=== PATIENT | male | born 1945 | race Caucasian/White ===

== ENCOUNTER → 2017-06-11 | Outpatient (CLI) | payer OTHER ==
[~2017-06-11] MED LIST: ATOR20TA9 PO; METF10002 PO
== END | disposition home or self-care (01) ==
LOC: CFH 13:40
PROVIDERS: ATTEND Family Medicine
DX: K57.30 Diverticulosis of large intestine without perforation or abscess without bleeding (principal); K76.0 Fatty (change of) liver, not elsewhere classified; R93.41 Abnormal radiologic findings on diagnostic imaging of renal pelvis, ureter, or bladder
CPT/HCPCS: 74177; 82565

== ENCOUNTER 2017-07-31 05:16 | Day surgery (SDC) | payer OTHER ==
[2017-07-30 09:01] LABS: ASPARTATE AMINO TRANSFERASE 17 U/L (15-37); BLOOD UREA NITROGEN 14 mg/dL (7-18)
[~2017-07-31] VITALS: Ht 172.7 cm; Wt 84.1 kg
[~2017-07-31 05:16] MED LIST changes: +ASPI-621 PO; +CHOL10003 PO; +FISH OIL PO
[2017-07-31] MEDS ORDERED: LACTATED RINGERS 1,000 ML IV SCH (05:57)
[2017-07-31 05:58] VITALS: BP 136/86
[2017-07-31] MEDS ORDERED: STERILE WATER IV ONE (06:30)
[2017-07-31] MEDS ORDERED: MITOMYCIN IV ONE (06:30)
[2017-07-31] MEDS ORDERED: FENTANYL PF 100 MCG/2ML ONE ×2 (06:53→07:23)
[2017-07-31] MEDS ORDERED: MIDAZOLAM 1 MG/ML, 2ML ONE (06:53)
[2017-07-31] MEDS ORDERED: ONDANSETRON 2MG/ML, 2ML ONE (06:58)
[2017-07-31] MEDS ORDERED: PROPOFOL 10 MG/ML, 20ML ONE (06:58)
[2017-07-31] MEDS ORDERED: DEXAMETHASONE 4 MG/ML, 5ML ONE (06:58)
[2017-07-31] MEDS ORDERED: ONDANSETRON 2MG/ML, 2ML IVPush PRN (07:30)
[2017-07-31] MEDS ORDERED: HYDROmorphone 1 MG/ML, 1ML IV PRN (07:30)
[2017-07-31] MEDS ORDERED: PROMETHAZINE 25 MG/ML, 1ML IV PRN (07:30)
[2017-07-31] MEDS ORDERED: OXYcodone 5 MG/5 ML ORAL.SOL UDC PO PRN (07:30)
[2017-07-31] MEDS ORDERED: FENTANYL PF 100 MCG/2ML IV PRN (07:30)
[2017-07-31] MEDS ORDERED: MIDAZOLAM 1 MG/ML, 2ML IV PRN (07:30)
[2017-07-31] MEDS ORDERED: ALBUTEROL/IPRATROPIUM 2.5MG/0.5MG, 3 ML NPPB PRN (07:30)
[2017-07-31] MEDS ORDERED: MEPERIDINE/PF 25MG/0.5ML IVPush PRN (07:30)
[2017-07-31] MEDS ORDERED: LABETALOL 5MG/ML, 20ML IV PRN (07:30)
[2017-07-31] MEDS ORDERED: hydrALAzine 20 MG/ML, 1ML IV PRN (07:30)
[2017-07-31] MEDS ORDERED: ACETAMINOPHEN 325 MG TABLET PO PRN (07:30)
== END 2017-07-31 10:45 ==
LOC: OR 05:16 → OUT 10:45
PROVIDERS: ATTEND Urology
DX: C67.9 Malignant neoplasm of bladder, unspecified (principal); E11.9 Type 2 diabetes mellitus without complications; E78.00 Pure hypercholesterolemia, unspecified; Z85.828 Personal history of other malignant neoplasm of skin; Z79.82 Long term (current) use of aspirin; Z72.89 Other problems related to lifestyle
CPT/HCPCS: 36415; 52235; 80053; 81001; 82962; 87077; 87086; 87186; 88305; 88307; 88341; 88342; 93005; J1100; J2250; J2405; J2704; J3010; J7120; G0461

== ENCOUNTER → 2017-12-03 | Outpatient (CLI) | payer OTHER | END | disposition home or self-care (01) | LOC: CFH 14:11 | PROVIDERS: ATTEND Radiology Radiation Oncology | DX: D35.2 Benign neoplasm of pituitary gland (principal) | CPT/HCPCS: 70553 ==